=== PATIENT | female | born 1955 | race Caucasian/White ===

== ENCOUNTER 2021-03-11 11:32 | Emergency (ER) | payer MEDICARE, OTHER, SELFPAY ==
--- NOTE | 2021-03-11 13:33 | PC.NURSE ---
1135 during registration pt informs staff she does not want to be seen here but would go directly to new primary for numerous med refills. observed pt conversive, cheerful, in no apparent distress.
== END 2021-03-11 11:35 | disposition left against medical advice (07) ==
PROVIDERS: Emergency Provider Nurse Practitioner Family
DX: Z53.21 Procedure and treatment not carried out due to patient leaving prior to being seen by health care provider (principal)
CPT/HCPCS: 99199

== ENCOUNTER 2021-03-11 16:01 | Emergency (ER) | payer MEDICARE, OTHER, SELFPAY ==
--- NOTE | ~2021-03-11 | XR_ITS ---
EXAMINATION: XR chest 2V DATE: 03/11/2021 16:52 INDICATION: Weakness. TECHNIQUE: Frontal and lateral views of the chest were obtained. COMPARISON: None. FINDINGS: The chest demonstrates clear lungs without pneumonia, pleural effusion, or pneumothorax. Th e heart size is normal. There are surgical clips in the abdomen. IMPRESSION: 1. No acute cardiopulmonary disease. Reviewed, dictated and finalized at location A.
--- NOTE | 2021-03-11 16:13 | ECG_ITS ---
Measurements Intervals [place] Rate: 87 P: 19 VA: 120 QRS: 45 QRSD: 73 T: 17 QT: 348 QTc: 419 Interpretive Statements SINUS RHYTHM LOW VOLTAGE- PRECORDIAL LEADS CONSIDER INFERIOR INFARCT, AGE INDETERMINATE BORDERLINE T WAVE ABNORMALITY- ANTERIOR LEADS ABNORMAL ECG Electronically Signed On 03-11-2021 16:48:31 CDT by Viral Falcon D.O.
[2021-03-11 16:14] VITALS: BP 145/61; PULSE 86; RESP 14; TEMP 36.4; O2SAT 99
[2021-03-11 16:46] LABS: Glucose Point of Care 335 mg/dl (65-105)
[2021-03-11 16:52] LABS: Basophils Absolute Auto 0.1 K/mm3 (0.0-0.1); Basophils Percent Auto 0.7 % (0.2-1.2); Eosinophils Absolute Auto 0.2 K/mm3 (0-0.3); Eosinophils Percent Auto 2.5 % (0-4.4); Hematocrit 41.9 % (37.0-47.0); Hemoglobin 13.6 g/dL (12.0-15.0); Immature Granulocyte Absolute 0.03 K/mm3 (0.00-0.031); Immature Granulocyte Percent A 0.4 % (0-0.5); Lymphocytes Absolute Auto 2.01 K/mm3 (0.9-3.2); Lymphocytes Percent Auto 29.6 % (18.3-44.2); Mean Corpuscular HGB Conc 32.5 g/dl (32-36); Mean Corpuscular Hemoglobin 29.6 pg (26-34); Mean Corpuscular Volume 91.1 fl (80-100); Monocytes Absolute Auto 0.4 K/mm3 (0.1-0.6); Monocytes Percent Auto 6.3 % (2.6-8.5); Neutrophils Absolute Auto 4.1 K/mm3 (1.3-6.7); Neutrophils Percent Auto 60.5 % (45.5-73.1); Platelet Count Result 212 k/mm3 (150-375); White Blood Count 6.8 K/mm3 (4.5-10.0)
[2021-03-11 17:03] LABS: Alanine Aminotransferase 64 U/L (4-35); Albumin Level 4.5 g/dL (3.5-5.1); Alkaline Phosphatase 188 U/L (38-126); Anion Gap 10 mmol/L (8-16); Aspartate Amino Transferase 54 U/L (14-36); Bilirubin,Total 0.4 mg/dL (0.2-1.3); Blood Urea Nitrogen 23 mg/dL (7-17); Calcium 9.4 mg/dL (8.4-10.2); Carbon Dioxide 25 mmol/L (22-30); Chloride 100 mmol/L (98-107); Estimated CRCL calculation 76 ml/min; Estimated Glomerular Filt Rate > 60; Glucose 352 mg/dL (65-110); Potassium 4.4 mmol/L (3.4-5.0); Sodium 135 mmol/L (137-145)
[2021-03-11 17:09] LABS: Add Urine Microscopic? YES; Appearance Urine Clear (Clear); Bacteria Urine Trace /hpf; Bilirubin Urine Negative (Negative); Blood Urine Negative (Negative); Color Urine Yellow (Yellow); Glucose Urine UA 3+ mg/dL (Negative); Ketones Urine Negative (Negative); Leukocyte Esterase Ur Trace LEU/UL (Negative); Nitrate Urine Negative (Negative); Protein Urine Negative (Negative); RBC Urine 0-2 /hpf (0-2); Specific Grav Ur 1.029 (1.001-1.035); Squamous Epithelial Cell Urine Rare /hpf (Few); Urobilinogen Urine Negative mg/dL (<2.0); WBC Urine 0-3 /hpf
[2021-03-11 18:35] VITALS: BP 155/66; PULSE 78; RESP 22; O2SAT 97
[2021-03-11 19:24] VITALS: PULSE 74
[2021-03-11 19:25] VITALS: BP 133/77; PULSE 73; RESP 18; O2SAT 94
--- NOTE | 2021-03-11 19:39 | ED.WEAKNESS ---
HPI - Weakness General Chief complaint: Weakness Stated complaint: blood in urine Time Seen by Provider: 03/11/21 18:35 History of Present Illness HPI Narrative: Patient is a 65-year-old female who presents ER with concerns for abnormal urinalysis. Patient reports she went to her primary care physician today and he did a urine test and became concerned that there was blood in there and that her blood sugars were slightly elevated. Patient reports she only went there today to get a refill of her insulin because it is about to run out. They did provide her with a prescription and she does not require that from us today. She has no chest or chest pressure or shortness of breath. No nausea or vomiting or dizziness. She has no dysuria or urinary frequency urgency. Patient has been drinking Mountain Dew prior to arrival. Review of Systems Review of Systems: All systems reviewed & are unremarkable except as noted in HPI and below Constitutional: Constitutional: Denies chills, Reports fatigue and Denies fever(s) ENT: Denies nasal congestion and Denies sore throat Cardiovascular: Cardiovascular: Denies chest pain, Denies rapid heart rate and Denies radiating jaw, neck or arm pain Respiratory: Respiratory: Denies cough, Denies dyspnea and Denies wheezing Gastrointestinal: Gastrointestinal: Denies abdominal pain, Denies nausea and Denies vomiting Genitourinary: Genitourinary: Reports hematuria (Microscopic), Denies nocturia, Denies dysuria and Denies flank pain PMFSH Past Medical History Medical History (Updated 03/11/21 @ 19:45 by Medardo Sparrow MD) Diabetes GERD (gastroesophageal reflux disease) Hypertension Social History Social History (Updated 03/11/21 @ 19:41 by Medardo Sparrow MD) Smoking status: Never smoker Exam Narrative: GENERAL: Well-appearing, well-nourished, and in no acute distress. HEAD: Normocephalic, atraumatic. ENT: Mucous membranes moist. CHEST: Clear to auscultation. No respiratory distress. HEART: Regular rate and rhythm. Normal peripheral pulses. ABDOMEN: Soft, nontender, nondistended. EXTREMITIES: Normal range of motion. No edema. SKIN: Warm, dry, no rash. NEURO: Alert and oriented x3. PSYCH: Normal mood and affect. Course Course Emergency Course: Patient resting comfortably. Unremarkable evaluation. Patient has her insulin so she can correct her hyperglycemia at home. Discharge this time. Vital Signs Vital signs: Vital Signs Temperature 97.6 F 03/11/21 16:14 Pulse Rate 86 03/11/21 16:14 Respiratory Rate 14 03/11/21 16:14 Blood Pressure 145/61 H 03/11/21 16:14 Pulse Oximetry 99 03/11/21 16:14 Temperature 97.6 F 03/11/21 16:14 Pulse Rate 73 03/11/21 19:25 Respiratory Rate 18 03/11/21 19:25 Blood Pressure 133/77 03/11/21 19:25 Pulse Oximetry 94 03/11/21 19:25 MDM - Weakness Lab Data Result diagrams: 03/11/21 16:41 03/11/21 16:41 Labs: Lab Results 03/11/21 03/11/21 03/11/21 Range/Units 16:22 16:41 16:41 WBC 6.8 (4.5-10.0) K/mm3 RBC 4.60 (4.2-5.4) M/mm3 Hgb 13.6 (12.0-15.0) g/dL Hct 41.9 (37.0-47.0) % MCV 91.1 (80-100) fl MCH 29.6 (26-34) pg MCHC 32.5 (32-36) g/dl RDW 12.0 (11.5-14.5) % Plt Count 212 (150-375) k/mm3 MPV 11.0 H (7.4-10.4) fl Immature Gran % (Auto) 0.4 (0-0.5) % Neut % (Auto) 60.5 (45.5-73.1) % Lymph % (Auto) 29.6 (18.3-44.2) % [place] % (Auto) 6.3 (2.6-8.5) % Eos % (Auto) 2.5 (0-4.4) % Baso % (Auto) 0.7 (0.2-1.2) % Lymph # (Auto) 2.01 (0.9-3.2) K/mm3 [place] # (Auto) 0.4 (0.1-0.6) K/mm3 Eos # (Auto) 0.2 (0-0.3) K/mm3 Baso # (Auto) 0.1 (0.0-0.1) K/mm3 Abs Immat Gran (auto) 0.03 (0.00-0.031) K/mm3 Absolute Neuts (auto) 4.1 (1.3-6.7) K/mm3 Absolute Nucleated RBC 0.0 (0.0-0.012) K/mm3 Nucleated RBC % 0.0 (0.0-0.2) % Sodium 135 L (137-145) mmol/L Potassium 4.4 (3.4-5
== END 2021-03-11 19:52 | disposition home or self-care (01) ==
PROVIDERS: Emergency Medicine; Emergency Provider Emergency Medicine; PCP Emergency Medicine
DX: E11.65 Type 2 diabetes mellitus with hyperglycemia (principal); K21.9 Gastro-esophageal reflux disease without esophagitis; I10 Essential (primary) hypertension; Z79.4 Long term (current) use of insulin; R94.31 Abnormal electrocardiogram [ECG] [EKG]
CPT/HCPCS: 36415; 71046; 80053; 81001; 82948; 85025; 93005; 99283

== ENCOUNTER 2021-03-14 08:26 | Outpatient (CLI) | payer MEDICARE, OTHER, SELFPAY ==
--- NOTE | ~2021-03-14 | US_ITS ---
EXAMINATION: US art doppler w press LE BI DATE: 03/14/2021 09:06 INDICATION: Peripheral arterial disease. TECHNIQUE: Segmental pressures and plethysmographic and Doppler waveforms of the brachial and lower e xtremity arteries were obtained. COMPARISON: None. FINDINGS: Right and left brachial artery pressures of 163 mm Hg and 156 mm Hg, respectively, are concordant (no rmal difference <= 30 mmHg). The right high-thigh pressure index is 1.21 (normal > 1.2). The right ankle-brachial index (ISHAN) is 1 .12 (normal >= 0.9-1.0). The right great toe-brachial index (TBI) is 0.57 (normal >= 0.65). Arterial Doppler waveforms are biphasic in common femoral artery, triphasic in superficial femoral artery, and biphasic in popliteal artery and at the ankle. The left high-thigh pressure index is 1.22. The left ISHAN is 1.05. The left TBI is 0.71. Arterial Dopp ler waveforms are at least triphasic in common femoral artery and biphasic from superficial femoral a rtery to the ankle. IMPRESSION: 1. Mildly decreased right TBI, normal left TBI, and normal ABIs, consistent with arterial occlusive d isease. Reviewed, dictated and finalized at location A. IMPRESSION: 1. Mildly decreased right TBI, normal left TBI, and normal ABIs, consistent wit h arterial occlusive disease.
== END 2021-03-14 08:27 | disposition home or self-care (01) ==
PROVIDERS: PCP Emergency Medicine; Visit Provider Emergency Medicine
DX: M79.661 Pain in right lower leg (principal); M79.662 Pain in left lower leg; R09.89 Other specified symptoms and signs involving the circulatory and respiratory systems
CPT/HCPCS: 93923

== ENCOUNTER 2021-03-19 07:06 | Outpatient (CLI) | payer MEDICARE, OTHER, SELFPAY ==
[2021-03-19 09:35] LABS: Hemoglobin A1C 10.3 % (<5.7)
[2021-03-19 10:01] LABS: Creatinine Urine 130.3 mg/dL
[2021-03-19 10:04] LABS: MALB Creatinine Ratio 4.8 mg/g (0-30); Microalbumin Urine Random 6.3 mg/L (0-16.7)
[2021-03-19 10:16] LABS: Free T4 Free Thyroxine 1.04 ng/mL (0.78-2.19); Vitamin D 25 Hydroxy 93.3 ng/mL
[2021-03-19 11:59] LABS: Hepatitis B Surface Antigen Negative (Negative)
[2021-03-19 12:05] LABS: HAV RESULT Negative (Negative); Hepatitis B Core IgM Result Negative (Negative)
[2021-03-19 12:16] LABS: Hepatitis C Virus Antibody Negative (Negative)
== END 2021-03-19 07:07 | disposition home or self-care (01) ==
PROVIDERS: PCP Emergency Medicine; Visit Provider Emergency Medicine
DX: E55.9 Vitamin D deficiency, unspecified (principal); E11.9 Type 2 diabetes mellitus without complications; R39.9 Unspecified symptoms and signs involving the genitourinary system; R94.5 Abnormal results of liver function studies
CPT/HCPCS: 36415; 80074; 82043; 82306; 83036; 84439; 84443; 87077; 87086; 87088